=== PATIENT | female | born 1990 | race Caucasian/White ===

== ENCOUNTER 2019-04-15 15:13 | Emergency (ER) | payer BC ==
[~2019-04-15] VITALS: Ht 172.7 cm; Wt 75.7 kg
[~2019-04-15 15:13] MED LIST: AMBIEN5 MG PO; COL250 PO; COLACE100 MG PO; CYCLOBENZAPRINE5 MG PO; ELA25 PO; FLE10 PO; LUTERA1 TAB PO; MYL80 CH; NORCO1 TA2 PO; OMEPRAZOLE40 M1 PO; TRAMADOL HCL50 MG PO; ZOF4 PO
[2019-04-15 15:20] VITALS: Ht 172.7 cm; Wt 75.7 kg
[2019-04-15 16:21] LABS: CALCIUM 8.9 mg/dL (8.5-10.1); CHLORIDE SERUM 105 mmol/L (98-107); CREATININE SERUM 0.6 mg/dL (0.6-1.0); GFR1 > 60 mL/min; GLUCOSE SERUM 91 mg/dL (74-106); SODIUM SERUM 140 mmol/L (136-145)
[2019-04-15 16:24] LABS: BASOPHIL % 0.3 % (0-2); PLATELET COUNT 301 x10^3mcL (130-400)
[2019-04-15 16:26] LABS: ALBUMIN 4.1 g/dL (3.4-5.0); ALKALINE PHOSPHATASE 76 U/L (46-116); ALT/SGPT 17 U/L (14-59); AST/SGOT 10 U/L (15-37); BILIRUBIN TOTAL 0.31 mg/dL (0.20-1.00)
[2019-04-15 17:06] VITALS: BP 130/71
== END 2019-04-15 17:06 | disposition home or self-care (01) ==
LOC: ED 15:13
PROVIDERS: Emergency Medicine
DX: L04.0 Acute lymphadenitis of face, head and neck (principal); J45.909 Unspecified asthma, uncomplicated; Z88.1 Allergy status to other antibiotic agents
CPT/HCPCS: 36415